=== PATIENT | female | born 1970 | race Caucasian/White ===

== ENCOUNTER → 2020-05-09 | Outpatient (CLI) | payer BC, OTHER ==
[~2020-05-09] MED LIST: ASHLYNA PO; CYMBALTA60 MG PO; FERROUS SULFAT325 M2 PO; GLUCOPHAGE 500500 MG PO; LISINOPRIL10 MG PO; METOPROLOL SUC100 MG PO; METOPROLOL SUCC50 MG PO
== END ==
LOC: CT 10:12
DX: H53.8 Other visual disturbances (principal); H47.299 Other optic atrophy, unspecified eye; H47.019 Ischemic optic neuropathy, unspecified eye; R59.0 Localized enlarged lymph nodes; E04.1 Nontoxic single thyroid nodule
CPT/HCPCS: 36415; 70498; 82565; 84520; Q9967

== ENCOUNTER → 2021-08-31 | Outpatient (CLI) | payer BC, OTHER | LOC: SLEEP 14:17 | DX: R06.83 Snoring (principal); R53.83 Other fatigue; G47.33 Obstructive sleep apnea (adult) (pediatric) | CPT/HCPCS: 95810 ==